=== PATIENT | female | born 1985 | race Caucasian/White ===

== ENCOUNTER 2018-01-06 18:54 | Emergency (ER) | payer OTHER ==
[~2018-01-06] VITALS: Ht 157.5 cm; Wt 108.9 kg
--- NOTE | 2018-01-06 20:11 | PD ---
HPI Chief Complaint Low back pain Date Seen: January 06, 2018 Time Seen: 20:00 Travel History International Travel<30 Days: No Contact w/Intl Traveler<30Days: No Known Affected Area: No History of Present Illness HPI 32-year-old white female at [address] Johnson for care and presents complaining of low back pain for several days, the pains have not gotten worse they have stayed about the same the whole time. She denies leakage of fluid or bleeding. Baby has been active, heart rate tracing is reactive and she is faisal every 4-6 minutes at this time Weeks Gestation: 36 Para: 0 : 2 Miscarriage: 1 History Obstetric History Obstetric History 1 early loss Social History Alcohol Use: No Tobacco Use: No Substance Abuse: No Review of Systems General / Constitutional: No: Fever, Weight Gain, Chills, Other Eyes: No: Diploplia, Blurred Vision, Visual changes, Pain, Photophobia HENT: No: Headaches, Vertigo, Lightheadedness Cardiovascular: No: Irregular Rhythm, Chest Pain or Discomfort, Palpitations, Tachycardia, Syncope, Varicosities, Edema, Cyanosis Respiratory: No: Cough, Short of Breath, Other Gastrointestinal: No: Nausea, Vomiting, Diarrhea Genitourinary: No: Decreased Urinary Output, Oliguria Musculoskeletal: No: Limited ROM, Weakness, Cramping, Edema, Pain Skin: No Rash, No Itching, No Dryness, No Lumps, No Change in Pigmentation, No Change in Nails, No Alopecia, No Lesions Neurologic: No: Weakness, Dizziness, Syncope, Focal Abnormalities, Coordination Problem, Headache, Slurred Speech, Seizures Psychiatric: No: Depression, Suicidal Ideations, Homicidal Ideation Endocrine: No: Heat Intolerance, Cold Intolerance, Polydipsia, Polyuria, Other Physical Exam Narrative GENERAL: Well-nourished, well-developed obese patient. SKIN: Warm and dry. HEAD: Normocephalic and atraumatic. EYES: No scleral icterus. No injection or drainage. ENT: No nasal drainage noted. Mucous membranes pink. Airway patent. NECK: Supple, trachea midline. No JVD. CARDIOVASCULAR: Regular rate and rhythm without murmurs, gallops, or rubs. RESPIRATORY: Breath sounds equal bilaterally. No accessory muscle use. BREASTS: Bilateral exam showed no masses , no retractions, no nipple discharge. ABDOMEN/GI: Abdomen soft, non-tender, bowel sounds present, no rebound, no guarding Gravid to [-36] weeks size Fundal Height: [36-] GENITOURINARY: External Genitalia: intact and normal in appearance BUS glands: [-] Cervix: [post-] Dilatation: [1-] Effacement: [-40] Station: [-3] Presentation: [vtx-] Membranes: [intact ] Uterine Contractions: [q 4-6 min-] FHT's: Category: [1-] Baseline: [-133] Reactive: [R-] Variability: [mod-] Decels: [none-] EXTREMITIES: No cyanosis or edema. BACK: Nontender without obvious deformity. No CVA tenderness. NEUROLOGICAL: Awake and alert. Motor and sensory grossly within normal limits. Five out of 5 muscle strength in all muscle groups. Normal speech. MDM Interpretation(s) Patient is 32-year-old white female at 36-37 weeks presents complaining of low back pain. She is faisal every 4-6 minutes heart rate is reactive. Cervix is 1/40 /and -3 /vertex. Patient was offered a pain shot for relief she did not want that. Plan Plan for the patient to be discharged home to bedrest, heating pad on the low back or hot bath for symptom relief, Tylenol liberally, and the p.o. fluids for hydration. She is to follow-up with Dr. Johnson for worsening pain to return here for repeat evaluation Diagnosis Diagnosis: Primary Impression: Low back pain during in third trimester Additional Impressions: Juan Juares contractions 36 weeks gestation of Disposition: DISCHARGE HOME Condition: Stable Jovon Chacon II, MD January 06, 2018 20:11
== END 2018-01-06 20:22 | disposition home or self-care (01) ==
LOC: HOBED 18:54
DX: O47.03 False labor before 37 completed weeks of gestation, third trimester (principal); M54.5 Low back pain; Z3A.36 36 weeks gestation of pregnancy
CPT/HCPCS: 99284

== ENCOUNTER 2018-01-27 16:42 | Emergency (ER) | payer OTHER ==
--- NOTE | 2018-01-27 17:26 | PD ---
HPI Chief Complaint Contractions Date Seen: January 27, 2018 Time Seen: 17:15 Travel History International Travel<30 Days: No Contact w/Intl Traveler<30Days: No Known Affected Area: No History of Present Illness HPI Patient is 32-year-old white female A2 at [address] Johnson he presents complaining of contractions that are very painful and regular, no bleeding or leakage of fluid, heart tracing is reactive she is faisal every 3-4 minutes. Patient states her cervix was 3 cm in the office this past week Weeks Gestation: 39 Para: 0 : 1 History Social History Alcohol Use: No Tobacco Use: No Substance Abuse: No Review of Systems General / Constitutional: No: Fever, Weight Gain, Chills, Other Eyes: No: Diploplia, Blurred Vision, Visual changes, Pain, Photophobia HENT: No: Headaches, Vertigo, Lightheadedness Cardiovascular: No: Irregular Rhythm, Chest Pain or Discomfort, Palpitations, Tachycardia, Syncope, Varicosities, Edema, Cyanosis Respiratory: No: Cough, Short of Breath, Other Gastrointestinal: Abdominal Pain, No: Nausea, Vomiting, Diarrhea Genitourinary: No: Decreased Urinary Output, Oliguria Musculoskeletal: No: Limited ROM, Weakness, Cramping, Edema, Pain Skin: No Rash, No Itching, No Dryness, No Lumps, No Change in Pigmentation, No Change in Nails, No Alopecia, No Lesions Neurologic: No: Weakness, Dizziness, Syncope, Focal Abnormalities, Coordination Problem, Headache, Slurred Speech, Seizures Psychiatric: No: Depression, Suicidal Ideations, Homicidal Ideation Endocrine: No: Heat Intolerance, Cold Intolerance, Polydipsia, Polyuria, Other Physical Exam Narrative GENERAL: Well-nourished, well-developed patient. SKIN: Warm and dry. HEAD: Normocephalic and atraumatic. EYES: No scleral icterus. No injection or drainage. ENT: No nasal drainage noted. Mucous membranes pink. Airway patent. NECK: Supple, trachea midline. No JVD. CARDIOVASCULAR: Regular rate and rhythm without murmurs, gallops, or rubs. RESPIRATORY: Breath sounds equal bilaterally. No accessory muscle use. BREASTS: Bilateral exam showed no masses , no retractions, no nipple discharge. ABDOMEN/GI: Abdomen soft, non-tender, bowel sounds present, no rebound, no guarding Gravid to [39-] weeks size Fundal Height: [39-] GENITOURINARY: External Genitalia: intact and normal in appearance BUS glands: [-] Cervix: [post-] Dilatation: [2-3-] Effacement: [60-] Station: [-2] Presentation: [-vtx] Membranes: [intact ] Uterine Contractions: [q 3 min-] FHT's: Category: [1-] Baseline: [133-] Reactive: [R-] Variability: [mod-] Decels: [-0] EXTREMITIES: No cyanosis or edema. BACK: Nontender without obvious deformity. No CVA tenderness. NEUROLOGICAL: Awake and alert. Motor and sensory grossly within normal limits. Five out of 5 muscle strength in all muscle groups. Normal speech. MDM Interpretation(s) Patient is 32-year-old white female at 39 weeks presents with contractions of prodromal labor. Tractions are painful patient cervix seems to not really changed since her check in the office recently. Cervix is still 2-3/ 60/-2/vertex, however since patient is in exhibiting fairly significant pain that would let her walk an hour and recheck her. Plan Plan for patient to walk for an hour and get rechecked Patient Instructions: General Instructions Departure Forms: Tests/Procedures Jovon Chacon II, MD January 27, 2018 17:26
[2018-01-27] MEDS ORDERED: MEPERIDINE HCL 50 MG/ML VIAL IM ONE (19:30)
[2018-01-27] MEDS ORDERED: PROMETHAZINE INJ 25 MG/ML VIAL IM ONE (19:30)
--- NOTE | 2018-01-27 20:37 | PD ---
HPI Travel History International Travel<30 Days: No Contact w/Intl Traveler<30Days: No Known Affected Area: No History of Present Illness HPI Patient is 32-year-old white female A2 at [address] Johnson he presents complaining of contractions that are very painful and regular, no bleeding or leakage of fluid, heart tracing is reactive she is faisal every 3-4 minutes. Patient states her cervix was 3 cm in the office this past week Allergies-Medications (Allergen,Severity, Reaction): Coded Allergies: amoxicillin (Verified Allergy, Mild, 01/27/18) cephalexin (Verified Allergy, Mild, 01/27/18) Uncoded Allergies: iv contrast (Allergy, Mild, 01/27/18) Physical Exam Narrative GENERAL: Well-nourished, well-developed patient. SKIN: Warm and dry. HEAD: Normocephalic and atraumatic. EYES: No scleral icterus. No injection or drainage. ENT: No nasal drainage noted. Mucous membranes pink. Airway patent. NECK: Supple, trachea midline. No JVD. CARDIOVASCULAR: Regular rate and rhythm without murmurs, gallops, or rubs. RESPIRATORY: Breath sounds equal bilaterally. No accessory muscle use. BREASTS: Bilateral exam showed no masses , no retractions, no nipple discharge. ABDOMEN/GI: Abdomen soft, non-tender, bowel sounds present, no rebound, no guarding Gravid to [-] weeks size Fundal Height: [-] GENITOURINARY: External Genitalia: intact and normal in appearance BUS glands: [-] Cervix: [-] Dilatation: [-] Effacement: [-] Station: [-] Presentation: [-] Membranes: [intact or ruptured] Uterine Contractions: [-] FHT's: Category: [-] Baseline: [-] Reactive: [-] Variability: [-] Decels: [-] EXTREMITIES: No cyanosis or edema. BACK: Nontender without obvious deformity. No CVA tenderness. NEUROLOGICAL: Awake and alert. Motor and sensory grossly within normal limits. Five out of 5 muscle strength in all muscle groups. Normal speech. Data Data Orders Orders Meperidine Inj (Demerol Inj) (01/27/18 19:30) Promethazine Inj (Phenergan Inj) (01/27/18 19:30) Attending Discharge Order (01/27/18 ) MDM Diagnosis Diagnosis: Primary Impression: Jefferson Juares' contraction Disposition: 01 DISCHARGE HOME Condition: Stable Patient Instructions: General Instructions, Movement (ED) Additional Instructions: RETURN TO ER FOR REGULAR CONTRACTIONS, BLEEDING, LEAKING OF FLUIDS, DECREASED MOVEMENT. Departure Forms: Tests/Procedures Jovon Chacon II, MD January 27, 2018 20:37
== END 2018-01-27 20:23 | disposition home or self-care (01) ==
LOC: HOBED 16:42
DX: O47.1 False labor at or after 37 completed weeks of gestation (principal); Z3A.39 39 weeks gestation of pregnancy
CPT/HCPCS: 99284; J2175; J2550